=== PATIENT | female | born 1975 | race Caucasian/White ===

== ENCOUNTER 2018-07-14 06:00 | Day surgery (SDC) | payer OTHER ==
[~2018-07-14] VITALS: Ht 160 cm; Wt 74.8 kg
[2018-07-14 06:15] LABS: HCG,QUAL RESULT NEGATIVE (NEGATIVE)
[2018-07-14] MEDS ORDERED: CEFAZOLIN 1 GM IVPB PREMIX 50 ML IV ONE (07:00)
[2018-07-14] MEDS ORDERED: POLYMYXIN 500,000/BACIT.10,000 UNITS in NS IRR 1 L IR ONE (07:20)
[2018-07-14] MEDS ORDERED: ONDANSETRON HCL 4 MG/2 ML VIAL IVP PRN (08:45)
[2018-07-14] MEDS ORDERED: KETOROLAC TROMETHAMINE 30 MG VIAL IVP PRN (08:45)
[2018-07-14] MEDS ORDERED: fentaNYL CITRATE/PF 100 MCG/2 ML AMP IVP PRN ×2 (08:45)
[2018-07-14] MEDS ORDERED: D5/0.45 NS 1,000 ML IV SCH (09:02)
[2018-07-14] MEDS ORDERED: HYDROmorphone 2 MG/ML VIAL IVP PRN (09:15)
[2018-07-14] MEDS ORDERED: fentaNYL CITRATE/PF 100 MCG/2 ML AMP ONE (09:54)
[2018-07-14 10:26] VITALS: BP_SYST 112
[2018-07-14] MEDS ORDERED: KETOROLAC TROMETHAMINE 30 MG VIAL ONE (11:56)
== END 2018-07-14 13:20 | disposition home or self-care (01) ==
LOC: SMU 06:00 → SDS 06:00
PROVIDERS: ATTEND Colon & Rectal Surgery
DX: K42.0 Umbilical hernia with obstruction, without gangrene (principal); Z82.49 Family history of ischemic heart disease and other diseases of the circulatory system; Z83.3 Family history of diabetes mellitus; Z79.899 Other long term (current) drug therapy; Z88.8 Allergy status to other drugs, medicaments and biological substances
CPT/HCPCS: 49587; 84703; 88302; C1781; J0690; J1885; J3010; J7120